=== PATIENT | female | born 1970 | race African-American/Black ===

== ENCOUNTER 2019-04-30 18:36 | Emergency (ER) | payer BC, OTHER ==
[~2019-04-30] VITALS: Ht 167.6 cm; Wt 122.5 kg
[~2019-04-30 18:36] MED LIST: BACTRIM DS TAB1 EACH PO; CEFADROXIL 500500 M1 PO; DARVOCET-N 1001 EAC1 PO; FAMOTIDINE; GAVISCON TABLE1 EACH PO; LISINOPRIL20 MG PO; OS-CAL 500+D C1 EACH PO; SYNTHROID125 MCG PO; SYNTHROID25 MCG PO
[2019-04-30 18:45] VITALS: BP 143/70
[2019-04-30] MEDS ORDERED: COZAAR 25 MG TA25 M1 PO (18:50)
[2019-04-30] MEDS ORDERED: SYNTHROID200 MCG PO (18:51)
[2019-04-30] MEDS ORDERED: ROBAXIN500 MG PO (20:04)
[2019-04-30] MEDS ORDERED: NORCO 5-325 TA1 EAC1 PO (20:04)
== END 2019-04-30 20:20 | disposition home or self-care (01) ==
LOC: ER 18:36
DX: M54.31 Sciatica, right side (principal); I10 Essential (primary) hypertension; K21.9 Gastro-esophageal reflux disease without esophagitis; E89.0 Postprocedural hypothyroidism